=== PATIENT | female | born 1940 | race Caucasian/White ===

== ENCOUNTER → 2024-03-01 07:49 | Outpatient (REF) | payer MEDICARE, SELFPAY | LOC: WDC 07:49 | PROVIDERS: ATTENDING PHYSICIAN Family Medicine | DX: Z12.31 Encounter for screening mammogram for malignant neoplasm of breast (principal) | CPT/HCPCS: 77063; 77067 ==

== ENCOUNTER → 2025-04-04 08:04 | Outpatient (REF) | payer MEDICARE, SELFPAY | LOC: WDC 08:04 | PROVIDERS: ATTENDING PHYSICIAN Family Medicine | DX: Z12.31 Encounter for screening mammogram for malignant neoplasm of breast (principal) | CPT/HCPCS: 77063; 77067 ==

== ENCOUNTER 2025-06-17 17:11 | Inpatient (IN) | payer MEDICARE, SELFPAY ==
[2025-06-17 11:03] VITALS: BP 133/74
[2025-06-17 11:44] LABS: Hematocrit 38.4 % (37.0-47.0); Hemoglobin 13.2 g/dL (12.0-16.0); Mean Corp Hgb Conc. 34.4 g/dL (33.0-37.0); Mean Corpuscular Volume 90.4 fL (81.0-99.0); Nucleated Red Blood Cells % 0 %; Platelet Count 180 10^3/uL (130-400); Red Cell Dist. Width 12.1 % (11.5-14.5)
[2025-06-17 11:45] LABS: Urine Character Clear (Clear)
[2025-06-17 11:56] LABS: ALT (SGPT) 18 U/L (0-35); AST (SGOT) 23 U/L (14-36); Albumin 4.2 g/dl (3.5-5.0); Alkaline Phosphatase 87 U/L (38-126); Blood Urea Nitrogen 20 mg/dl (7-17); Calcium 9.3 mg/dl (8.4-10.2); Carbon Dioxide 25 mmol/L (22-30); Chloride 104 mmol/L (98-107); Glucose 117 mg/dl (70-99); Potassium 3.7 mmol/L (3.5-5.1); Sodium 138 mmol/L (135-145); Total Protein 6.8 g/dl (6.3-8.2); eGFR > 60.00
[2025-06-17 12:11] LABS: Urine White Cell 16-20 /HPF (0-5)
[2025-06-17 12:40] VITALS: BMI 30.7
--- NOTE | 2025-06-17 13:44 | ED.GENMED ---
History of Present Illness
General
Chief Complaint: Urinary Symptoms
Source: patient
Exam Limitations: none
Time Seen by Provider: 06/17/25 13:17
Nursing documentation reviewed up to this point in time: agreed with
History of Present Illness
History of Present Illness:
see MDM
Past History
Past History
ED Past Surgical History: Cholecystectomy, Gynecological, Orthopedic, Urological and Other
Social History
Personal:
Employment: Retired
Review of Systems
Review of Systems
Allergies reviewed?: Yes
All Other Systems: Not applicable
Phy Exam
Physical Exam
Physical Exam:
GENERAL: Alert , in no apparent distress
EYE: pupils equal and reactive
NECK: Supple
ENT: o/p clr, mmm.
CARDIAC: Regular rate and rhythm .
LUNGS: Clear breath sounds bilaterally, no acute respiratory distress, no wheezes/rales/rhonchi
ABDOMEN: Soft, okay no r/g, no cvat, normal bowel sounds
NEUROLOGICAL: Alert and oriented, no focal neuro deficits
SKIN: Warm and dry, skin intact.
MUSCULOSKELETAL: No edema, well perfused. neg lan's sign
PSYCH: Normal and appropriate interaction.
Course
Orders/Labs/Results
Orders:
Orders
06/17/25 11:08
IV Insert/Care/Rem.- Treatment PRN
O2 Therapy [RESP] Urgent
Titrate/Wean O2 to maintain O2 sat greater than (%): 93
Special Instructions: TO MAINTAIN CONTINUOUS O2 SATS > OR = 93%
Pulse Ox/cont/shift [RESP] Urgent
Quantity: 1
Special Instructions: CONTINUOUS
06/17/25 11:25
Complete Blood Count/With Diff Urgent
Comprehensive Metabolic Panel Urgent
Blood Culture Q20M
CECIL Source: Blood/Venous
Specimen Description:
Comment: Urgent from separate sites. If patient screens positive for possible sepsis
06/17/25 11:26
Urinalysis Reflex To Culture Urgent
Date Specimen was Collected: 06/17/25
Time Specimen was Collected: 11:08
Urine Microscopic Reflex Cult Urgent
Urine Culture Urgent
CECIL Source: U
Specimen Description:
Date Specimen was Collected: 06/17/25
Time Specimen was Collected: 11:08
06/17/25 12:26
Blood Culture Q20M
CECIL Source: Blood/Venous
Specimen Description:
Comment: Urgent from separate sites. If patient screens positive for possible sepsis
06/17/25 14:31
CEFTAZidime [Fortaz] 1,000 mg IV NOW STA
Sterile Water [Sterile Water For Injection] 10 ml IV NOW STA
Abnormal Lab Results
06/17/25 06/17/25
11: 11:26
MCH 31.1 H pg
(27.0-31.0)
Lymphocytes % 17.0 L %
(20.5-51.1)
BUN 20 H mg/dl
(7-17)
Glucose 117 H mg/dl
(70-99)
Ur Occult Blood Reflex 2+ A
(Negative)
Leukocyte Esterase Rfl 2+ A
(Negative)
Urine RBC 3-6 A /HPF
(0-2)
Urine WBC (Reflex) 16-20 A /HPF
(0-5)
Urine Bacteria (Reflex) Many A
(Negative)
Urine Albumin (Reflex) 1+ A
(Neg - Trace)
06/17/25 11:25
06/17/25 11:25
Vital Signs
Initial and Last Documented VS:
Initial Vital Signs
Temp Pulse Resp BP Pulse Ox
36.4 C 83 16 133/74 96
06/17/25 11:03 06/17/25 11:03 06/17/25 11:03 06/17/25 11:03 06/17/25 11:03
Last Documented Vital Signs
Temp Pulse Resp BP Pulse Ox
36.4 C 18 16 133/74 96
06/17/25 11:03 06/17/25 12:00 06/17/25 11:03 06/17/25 11:03 06/17/25 13:47
MDM/Problems Addressed
Differential Diagnosis Includes:
see MDM
MDM/Problems Addressed:
Note:
CHIEF COMPLAINT(S)
Urinary issues with symptoms of blood in urine, urgency, frequency, and pressure.
HISTORY OF PRESENT ILLNESS
The patient is 84 y/o female presenting with persistent urinary symptoms despite completing a course of antibiotics (macrobid) She has been on continuous antibiotic prophylaxis with Keflex due to a past bacterial joint infection with hardware
placement in 2019.. The urinary symptoms began recently with episodes of visible blood in the urine described as 'red urine' but without clots about 1 week ago. Alongside, she reports urgency, frequency, and a sensation of pressure, though no
dysuria was mentioned. The patient has no associated nausea or vomiting and no recent instances of blood in urine after initiating antibiotic treatment. There was an episode of dry heaves, which occurred on the first day of taking a new antibiotic a
week ago, but it hasn�t continued since. . She denies fever, shaking chills, or any signs of systemic infection. The current plan involves obtaining the urine culture results to guide further antibiotic therapy.
no fever/chills, back pain, vomiting
ADDITIONAL HISTORY OBTAINED FROM SOURCES OTHER THAN THE PATIENT
Per the patient�s granddaughter, there was a mention by the healthcare provider about sending information over regarding the culture results and the need for intravenous antibiotics. It was also noted during triage that the patient was sent in for
intravenous antibiotic treatment.
EXTERNAL RECORDS REVIEWED
There was no direct access to the urine culture records mentioned. The culture was possibly sent to [facility] and they were expected to send the information over.
CHRONIC MEDICAL CONDITIONS SIGNIFICANTLY AFFECTING CARE
The patient has a history of a bacterial infection in a joint with hardware placed, requiring lifelong antibiotic prophylaxis.
PHYSICAL EXAM
- Abdominal Examination: Mild tenderness noted. No guarding or rebound tenderness.
Nursing notes reviewed and vital signs reviewed.
PLAN
The plan includes reviewing the urine culture results to determine the appropriate antibiotic treatment. The current understanding is that the patient might require intravenous antibiotics due to resistance to the oral regimen. Specific details
regarding the patients reaction to certain antibiotics need careful consideration in choosing the next line of treatment.
DIFFERENTIAL DIAGNOSIS
The Differential Diagnosis includes, in no particular order and is not limited to:
1. Urinary Tract Infection
2. Antibiotic Resistance
3. Pyelonephritis
4. Nephrolithiasis
5. Bladder Cancer
6. Hematuria secondary to medication
7. Interstitial Cystitis
8. Acute Glomerulonephritis
9. Drug-induced Nephropathy
10. Structural anomalies of the urinary tract.
84-year-old female on chronic Keflex due to septic right knee presents for persistent UTI symptoms despite a course of nitrofurantoin orally by her family doctor. She was called today with results of the culture which grew out Pseudomonas which is
pansensitive however patient has allergies to penicillin, Bactrim and cannot tolerate Levaquin, saying that she had tendinitis all over and could not walk.
Patient's not having any systemic symptoms, she just describes dysuria and urgency.
Her white count is normal and she has no fever and stable blood pressure. I reviewed this with the pharmacist. She could potentially try Cipro orally however patient is very nervous to do that because of the previous severe tendinitis she got so
she is declining that option. We I will admit her for IV antibiotics
*Pulse Oximetry
SaO2: 96
Oxygen Mode of Delivery: Room air
Patient hypoxic: no (96)
*Critical Care Note
Total Time (30-74mins, 75-104mins- exclusive of procedures): Not Applicable
ED Attending Note
-
Portions of this chart may have been created with voice recognition software.� Occasional wrong word or��sound alike� substitutions may have occurred due to the inherent limitations of voice recognition software.
Discharge Plan
Departure
Patient Disposition: Admit
Date of Disposition: 06/17/25
Time of Disposition: 13:47
Admit to: Med/Surg
Presentation/result/management discussed w/ accepting MD/DO: Hospitalist
Condition: Fair
Covid-19: Not Applicable
Discharge Problem:
UTI (urinary tract infection), Failure of outpatient treatment
Prescriptions:
No Action
cholecalciferol (vitamin D3) 2,000 UNIT tablet
2,000 unit PO DAILY Qty: 0
omeprazole magnesium [Prilosec OTC] 20 MG tablet,delayed release (DR/EC)
20 mg PO DAILY
pkcdgux-jucgywmcv-bksr 333-133-5 mg Tablet
1 tab PO DAILY Qty: 0
multivitamin Tablet
1 tab PO DAILY
fexofenadine 180 mg Tablet
180 mg PO DAILY
cephalexin 500 mg Tablet
500 mg PO DAILY
sennosides [Senna Lax] 1 TABLET tablet
2 tab PO DAILY
escitalopram oxalate [Lexapro] 5 mg Tablet
5 mg PO DAILY
cranberry 450 mg Tablet
450 mg PO DAILY
Referrals:
Saeid Garay MD [Family Provider, Family Practice]
Interventions
Interventions:
*Risk Screen - Suicide Last Done: 06/17/25 11:03
*General Assessment Last Done: 06/17/25 12:39
*Neglect/Abuse Screening Last Done: 06/17/25 12:41
*ED- Fall Risk Assessment Last Done: 06/17/25 11:03
*ED COVID-19 Vaccine History Last Done: 06/17/25 12:39
*ED Influenza Vaccine History Last Done: 06/17/25 12:39
ED-Female Genitourinary Assessment Last Done: 06/17/25 12:41
Discharge Date and Time
Print Language: TOGOLESE
[2025-06-17] MEDS: FORTAZ 1000 MG IV (14:57)
[2025-06-17] MEDS: STERILE WATER FOR INJECTION 10 ML IV ×2 (14:57→20:58)
--- NOTE | 2025-06-17 17:04 | HPS.HSE ---
Family Physician
-
Family Physician: Saeid Garay
Chief Complaint
-
Dysuria/blood in urine
History of Present Illness
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
hysterectomy, history of bladder sling, history of colon polyp came to ER with new onset of dysuria and hematuria which started last Friday. Patient was seen by primary care physician and urinalysis/urine culture was collected. Patient was started
on nitrofurantoin although did not have much improvement in symptoms. Patient started to having some nausea without any vomiting. Also having lower abdominal discomfort. Patient was notified by primary care physician office of urine culture
growing Pseudomonas and was requested to come to the hospital for IV antibiotic therapy.
In ER patient mainly voicing complaints of dysuria/lower abdominal discomfort. Patient also have bilateral lower extremity swelling and denies of having any previous episodes in the past. Denies of having any heart failure/chronic DVT. No history
of kidney stones. No urological procedures desired bladder sling surgery
Denies of having any cardiopulmonary issues.
Medical History
Past Medical History
Past Medical History: Reports Other
Additional Past Medical History:
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
Past Surgical History: Reports Other
Social History
Tobacco: Non-smoker
Alcohol: None
Drug: None
Living: With Family
Family History
Family History: Not pertinent
Allergies / Home Medications
Allergies reflects when Allergies were last updated in [facility].
Home Medications with original date entered in [facility]
Allergy/Medication List:
Allergies
Allergy/AdvReac Type Severity Reaction Status Date / Time
levofloxacin (From Levaquin) Allergy Intermediate Tendonitis Verified 10/04/22 12:25
lisinopril Allergy Itching Verified 10/04/22 12:25
penicillin G Allergy Rash Verified 10/04/22 12:25
Penicillins Allergy Rash Verified 10/04/22 12:25
Sulfa (Sulfonamide Allergy Rash, Verified 10/04/22 12:25
Antibiotics) throat
closes
sulfamethoxazole Allergy Rash, Verified 10/04/22 12:25
throat
closes
trimethoprim Allergy Unknown Verified 10/04/22 12:25
Home Medications
cholecalciferol (vitamin D3) 50 mcg (2,000 unit) tablet 2,000 unit PO DAILY Supplement ##0 12/12/15
ghfzlbj-rmmqgpaem-jzpo 333 mg-133 mg-5 mg tablet 1 tab PO DAILY Supplement ##0 11/01/16
omeprazole magnesium 20 mg tablet,delayed release (Prilosec OTC) 20 mg PO DAILY 11/01/16
cephalexin 500 mg tablet 500 mg PO DAILY technician terminal and repeater 09/25/22
fexofenadine 180 mg tablet 180 mg PO DAILY Allergies 09/25/22
multivitamin 1 tab PO DAILY 09/25/22
sennosides 8.6 mg tablet (Senna Lax) 2 tab PO DAILY 09/25/22
cranberry fruit 450 mg tablet (cranberry) 450 mg PO DAILY Supplement 06/17/25
escitalopram oxalate 5 mg tablet (Lexapro) 5 mg PO DAILY Mental Health/Anxiety 06/17/25
Review of Systems
-
A 12 point ROS was completed and negative except as noted: Yes
Physical Exam
Vital Signs
Vital Signs
Temp Pulse Resp BP Pulse Ox
97.6 F 18 16 133/74 96
06/17/25 11:03 06/17/25 12:00 06/17/25 11:03 06/17/25 11:03 06/17/25 13:47
Physical Exam
General: No Apparent Distress
HEENT: Atraumatic; No Oxygen
Respiratory: Clear
Cardiac: S1/S2 and Regular Rhythm; No Murmur or Rub
GI: Soft, Non Tender and Non Distended; No Organomegaly
Musculoskeletal: No Clubbing, No Cyanosis, Edema, Left Lower Extremity and Edema, Right Lower Extremity
Skin: No Rash
Neuro: Awake, Alert, Oriented and Nonfocal/grossly intact
Laboratory Results
-
06/17/25 11:25
06/17/25 11:
Laboratory Results
Total Bilirubin 0.4 mg/dl (0.2-1.3) 06/17/25:
AST 23 U/L (14-36) 06/17/25:
ALT 18 U/L (0-35) 06/17/25 11:
Alkaline Phosphatase 87 U/L (38-126) 06/17/25:
Impression/Plan
-
1. Pseudomonas UTI
- Patient have initial symptoms of hematuria/dysuria developing 1 week back and was prescribed nitrofurantoin by primary care
- Urine culture was sent to [facility], requested family to check with [facility] if able to find report. I will try to contact [facility] tomorrow to get the record as well
- Patient vitally stable/afebrile in ER. Normal WBC count.
- Repeat urine culture and blood culture has been collected
- As patient noted some hematuria we will order renal bladder ultrasound
- Patient is allergic to levofloxacin, and thus only remaining antibiotics are IV. Will choose cefepime with penicillin allergy history.
2. Bilateral lower extremity
- Check proBNP, no previous history of heart failure
- May have venous insufficiency although patient denies of noticing significant leg swelling
- Some tenderness to palpitation on exam
- Lower extremity Roe wraps ordered
- Bilateral venous Doppler ordered
3. Bilateral TKA
Chronic right knee prosthetic joint infection
- Hold chronic prophylactic Keflex as patient will is on cefepime.
4. Gastroesophageal reflux disease
- Maintain on omeprazole
5. Depression/anxiety
- Maintained on home dose of Lexapro
6. Generalized weakness
- PT evaluation ordered
DVT prophylaxis -heparin subcu
Full code
Total time spent : 77 mins
I personally saw and examined the patient.
I have reviewed all diagnostic interpretations and treatment plans as written.
Time includes patient management by me, time spent at the patients bedside, time to review lab and imaging results, discussing patient care, documentation in the medical record, and time spent with the family or caregiver and discussing care plan
with RN/Consultants.
--- NOTE | 2025-06-17 17:16 | EDCM ---
Reviewed chart and met with pt and daughter bedside in ED. Pt lives alone in 1 story home, no LITO from front door.
Independent in ADLs, personal care and ambulation at baseline. Does not use assistive device but has cane, RW, WC and shower bench in home.
Daughter lives one house away and provides support.
Confirms prescription coverage.
Hx [facility] and [facility]. No hx SNF.
PCP: Saeid Garay
Pharmacy: [facility]
Anticipate discharge home, CM will continue to follow for all discharge planning needs.
[2025-06-17 18:30] VITALS: BP 176/82; BMI 30.2
[2025-06-17] MEDS: MAXIPIME 1000 MG IV (20:58)
[2025-06-17] MEDS: HEPARIN 5000 UNITS SC (20:59)
[2025-06-17 23:00] VITALS: BP 136/63
[2025-06-18] MEDS: STERILE WATER FOR INJECTION 10 ML IV ×3 (02:59→18:49)
[2025-06-18] MEDS: MAXIPIME 1000 MG IV ×3 (02:59→18:49)
[2025-06-18 05:46] LABS: Hematocrit 36.2 % (37.0-47.0); Hemoglobin 12.2 g/dL (12.0-16.0); Mean Corp Hgb Conc. 33.7 g/dL (33.0-37.0); Mean Corpuscular Volume 93.3 fL (81.0-99.0); Platelet Count 161 10^3/uL (130-400); Red Cell Dist. Width 12.2 % (11.5-14.5)
[2025-06-18 07:41] VITALS: BP 143/78
[2025-06-18] MEDS: PROTONIX 40 MG PO (08:38)
[2025-06-18] MEDS: CLARITIN 10 MG PO (08:38)
[2025-06-18] MEDS: LEXAPRO 5 MG PO (08:38)
[2025-06-18] MEDS: VITAMIN D3 (cholecalciferol) 50 MCG PO (08:38)
[2025-06-18] MEDS: HEPARIN SC (08:41)
--- NOTE | 2025-06-18 12:02 | W.PN.HOSP.TC ---
Today's Communication/Plan
-
see note
Assessment / Plan
Assessment / Plan
Renal bladder US
1. Moderate postvoid residual in the urinary bladder (33 mL).
2. No sonographic evidence for hydronephrosis or nephrolithiasis in either kidney.
3. 1.2 cm hyperechoic mass in the upper pole of the left kidney which is probably either an angiomyolipoma or invagination of adjacent retroperitoneal fat. Renal cell carcinoma is considered unlikely.
1. Pseudomonas UTI
- Patient have initial symptoms of hematuria/dysuria developing 1 week back and was prescribed nitrofurantoin by primary care
- Urine culture report personally reviewed from [facility] -Pseudomonas isolated is pansensitive to antibiotics
- Patient vitally stable/afebrile in ER. Normal WBC count.
- Repeat urine culture and blood culture has been collected. f/u results
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 Will need to follow-up with urology in office.
- Patient is allergic to levofloxacin, and thus only remaining antibiotics are IV. Will choose cefepime with penicillin allergy history.
2. Bilateral lower extremity swelling
Presumed Varicose veins/venous insufficiency related
- ProBNP ~ 490, low concern of HF
- May have venous insufficiency although patient denies of noticing significant leg swelling
- Lower extremity Roe wraps ordered
- Bilateral venous Doppler negative for clot
3. Bilateral TKA
Chronic right knee prosthetic joint infection
- Hold chronic prophylactic Keflex as patient will is on cefepime.
4. Gastroesophageal reflux disease
- Maintain on omeprazole
5. Depression/anxiety
- Maintained on home dose of Lexapro
6. Generalized weakness
- PT evaluation ordered
DVT prophylaxis -heparin subcu
Full code
Daughter updated at bedside
Anticipated Discharge: 24 - 48 hours
Subjective/Interval History
-
Date of Service: June 18, 2025
Objective Data
-
Labs:
Laboratory Results
06/18/25
05:08
WBC 7.1
Hgb 12.2
Hct 36.2 L
Plt Count 161
Vital Signs:
Vital Signs
Temp Pulse Resp BP Pulse Ox
98.6 F 71 16 143/78 95
06/18/25 07:41 06/18/25 07:41 06/18/25 07:41 06/18/25 07:41 06/18/25 07:41
[2025-06-18 12:20] VITALS: BP 184/88
[2025-06-18 15:34] VITALS: BP 139/73
--- NOTE | 2025-06-18 19:50 | PTCARENOTE ---
This RN went into patient room to give scheduled medications. This RN sees patient with daily pill container on bedside table. After being asked about medications, patient states her 'daughter brought them in from home. I didn't take any yet.' This
RN educated patient about how the only medications she can take while admitted will be administered by staff. Patient restates she did not take any of the pills she brought in. This RN reviewed all medications [facility] staff has given her since being
admitted to ensure we are giving all medication necessary. Patient put pills brought in from home back in bag and agreed to have her daughter bring them home. Plan of care ongoing.
[2025-06-18] MEDS: HEPARIN 5000 UNITS SC (19:52)
[2025-06-18 23:35] VITALS: BP 157/76
[2025-06-19] MEDS: MAXIPIME 1000 MG IV ×2 (02:24→10:21)
[2025-06-19] MEDS: STERILE WATER FOR INJECTION 10 ML IV ×3 (02:25→17:50)
[2025-06-19 05:40] LABS: Hematocrit 36.5 % (37.0-47.0); Hemoglobin 12.5 g/dL (12.0-16.0); Mean Corp Hgb Conc. 34.2 g/dL (33.0-37.0); Mean Corpuscular Volume 91.5 fL (81.0-99.0); Platelet Count 170 10^3/uL (130-400); Red Cell Dist. Width 12.1 % (11.5-14.5)
[2025-06-19 07:45] VITALS: BP 136/83
[2025-06-19] MEDS: PROTONIX 40 MG PO (08:19)
[2025-06-19] MEDS: VITAMIN D3 (cholecalciferol) 50 MCG PO (08:19)
[2025-06-19] MEDS: CLARITIN 10 MG PO (08:19)
[2025-06-19] MEDS: HEPARIN 5000 UNITS SC ×2 (08:19→20:28)
[2025-06-19] MEDS: LEXAPRO 5 MG PO (08:19)
--- NOTE | 2025-06-19 11:48 | W.PN.HOSP.TC ---
Today's Communication/Plan
-
ID evaluation
midline
home infusion setup
Assessment / Plan
Assessment / Plan
Renal bladder US
1. Moderate postvoid residual in the urinary bladder (33 mL).
2. No sonographic evidence for hydronephrosis or nephrolithiasis in either kidney.
3. 1.2 cm hyperechoic mass in the upper pole of the left kidney which is probably either an angiomyolipoma or invagination of adjacent retroperitoneal fat. Renal cell carcinoma is considered unlikely.
1. Pseudomonas UTI
- Patient have initial symptoms of hematuria/dysuria developing 1 week back and was prescribed nitrofurantoin by primary care
- Urine culture report personally reviewed from [facility] -Pseudomonas isolated is pansensitive to antibiotics
- Patient vitally stable/afebrile in ER. Normal WBC count.
- Repeat urine culture and hospitalization Pseudomonas -pansensitive antibiotic
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 Will need to follow-up with urology in office.
- Patient is allergic to levofloxacin, and thus only remaining antibiotics are IV.
- Currently on IV cefepime 2g q8h
- ID consultation placed as patient requesting to have home infusion set up. Midline ordered
2. Bilateral lower extremity swelling
Presumed Varicose veins/venous insufficiency related
- ProBNP ~ 490, low concern of HF
- May have venous insufficiency although patient denies of noticing significant leg swelling
- Lower extremity Roe wraps ordered
- Bilateral venous Doppler negative for clot
3. Bilateral TKA
Chronic right knee prosthetic joint infection
- Hold chronic prophylactic Keflex as patient will be on cefepime.
4. Gastroesophageal reflux disease
- Maintain on omeprazole
5. Depression/anxiety
- Maintained on home dose of Lexapro
6. Generalized weakness
- PT evaluation ordered
DVT prophylaxis -heparin subcu
Full code
Daughter updated at bedside
Anticipated Discharge: Within 24 hours
Subjective/Interval History
-
Date of Service: June 19, 2025
no complains overnight
afebrile
Objective Data
-
Labs:
Laboratory Results
06/19/25
05:07
WBC 6.7
Hgb 12.5
Hct 36.5 L
Plt Count 170
Vital Signs:
Vital Signs
Temp Pulse Resp BP Pulse Ox
97.7 F 70 16 136/83 96
06/19/25 07:45 06/19/25 07:45 06/19/25 07:45 06/19/25 07:45 06/19/25 07:45
I&O
06/18/25 06/19/25 06/20/25
06:59 06:59 06:59
Intake Total 1679 / 1679
Balance 1679 / 1679
Review of Systems
-
Respiratory: Reports No Symptoms
Cardiac: Reports No Symptoms
Abdomen/GI: Reports No Symptoms
Physical Exam
-
General: Comfortable and Conversant
HEENT: Negative Oxygen
Neuro: Awake, Alert, Oriented, AO x 3 and Nonfocal/Grossly Intact
Psych: Calm
[2025-06-19 15:18] VITALS: BP 140/80
[2025-06-19] MEDS: MAXIPIME 2000 MG IV (17:51)
[2025-06-19 23:30] VITALS: BP 144/88
[2025-06-20] MEDS: STERILE WATER FOR INJECTION 10 ML IV ×3 (02:42→17:26)
[2025-06-20] MEDS: MAXIPIME 2000 MG IV ×3 (02:45→17:26)
[2025-06-20 05:02] LABS: Hematocrit 35.9 % (37.0-47.0); Hemoglobin 12.2 g/dL (12.0-16.0); Mean Corp Hgb Conc. 34.0 g/dL (33.0-37.0); Mean Corpuscular Volume 90.9 fL (81.0-99.0); Platelet Count 178 10^3/uL (130-400); Red Cell Dist. Width 12.1 % (11.5-14.5)
[2025-06-20 07:30] VITALS: BP 144/78
[2025-06-20] MEDS: PROTONIX 40 MG PO (08:08)
[2025-06-20] MEDS: VITAMIN D3 (cholecalciferol) 50 MCG PO (08:08)
[2025-06-20] MEDS: LEXAPRO 5 MG PO (08:08)
[2025-06-20] MEDS: HEPARIN 5000 UNITS SC (08:08)
[2025-06-20] MEDS: CLARITIN 10 MG PO (08:08)
--- NOTE | 2025-06-20 11:08 | W.PN.HOSP.TC ---
Today's Communication/Plan
-
follow ID recs
Assessment / Plan
Assessment / Plan
Renal bladder US
1. Moderate postvoid residual in the urinary bladder (33 mL).
2. No sonographic evidence for hydronephrosis or nephrolithiasis in either kidney.
3. 1.2 cm hyperechoic mass in the upper pole of the left kidney which is probably either an angiomyolipoma or invagination of adjacent retroperitoneal fat. Renal cell carcinoma is considered unlikely.
Assessment:
Pseudomonas UTI
- Patient have initial symptoms of hematuria/dysuria developing 1 week back and was prescribed nitrofurantoin by primary care
- Urine culture report personally reviewed from [facility] -Pseudomonas isolated is pansensitive to antibiotics
- Patient vitally stable/afebrile in ER. Normal WBC count.
- Repeat urine culture and hospitalization Pseudomonas -pansensitive antibiotic
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 Will need to follow-up with urology in office.
- Patient is allergic to levofloxacin (hx of tendonitis), and thus only remaining antibiotics are IV.
- Currently on IV cefepime 2g q8h; ID evaluation pending. Midline placed.
Bilateral lower extremity swelling
Presumed Varicose veins/venous insufficiency related
- ProBNP ~ 490, low concern of HF
- May have venous insufficiency although patient denies of noticing significant leg swelling
- Lower extremity Roe wraps ordered
- Bilateral venous Doppler negative for clot
Bilateral TKA
Chronic right knee prosthetic joint infection
- Hold chronic prophylactic Keflex as patient will be on cefepime.
Gastroesophageal reflux disease
- Maintain on omeprazole
Depression/anxiety
- Maintained on home dose of Lexapro
Generalized weakness
- PT evals appreciated
DVT ppx: SC heparin
Code: Full
Daughter updated at bedside
Anticipated Discharge: Within 24 hours
Subjective/Interval History
-
Date of Service: June 20, 2025
resting comfortably, no complaints at present
Objective Data
-
Labs:
Laboratory Results
06/20/25
04:54
WBC 6.1
Hgb 12.2
Hct 35.9 L
Plt Count 178
Vital Signs:
Vital Signs
Temp Pulse Resp BP Pulse Ox
97.4 F 83 18 144/78 95
06/20/25 07:30 06/20/25 07:30 06/20/25 07:30 06/20/25 07:30 06/20/25 07:30
I&O
06/19/25 06/20/25 06/21/25
06:59 06:59 06:59
Intake Total 1680 / 1680 895 / 895
Balance 1680 / 1680 895 / 895
Physical Exam
-
General: No Apparent Distress
HEENT: Normocephalic and Atraumatic
Respiratory: Negative Wheezes
Cardiac: Regular Rhythm and S1/S2
GI: Soft
Genito-urinary: No Costovertebral Tender
Neuro: AO x 3
Psych: Calm
Data Reviewed
-
Total Time Spent with Patient (in minutes): 42
Labs: Labs Reviewed by me
--- NOTE | 2025-06-20 13:52 | CON.ID ---
Addendum entered and electronically signed by Brandee Barrios MD 06/21/25 08:25:
This note should be under INFECTIOUS DISEASE CONSULTATION.
Addendum entered and electronically signed by Brandee Barrios MD 06/20/25 15:53:
I personally performed a history and physical exam of the patient and discussed management with the resident. I reviewed the resident's note and agree with the documented findings and plan of care HPI/CC.
A/P
# Uncomplicated symptomatic UTI with pseudomonas
# Allergy to quinolones
- Urine symptoms resolved. No fever/leukocytosis.
- Recommend to complete cefepime (d4) through 11:00 am dose tomorrow, then dc home.
Original Note:
Consultation
-
Date/Time Consultation Requested: 06/19/25
Date/Time Consultation Performed: 06/20/25
Requesting Provider: Dr. Alexander Marte
Performing Provider: Dr. Brandee Barrios
Reason for Consultation: Psuedomonas UTI
Chief Complaint / Past History
Chief Complaint
UTI
History of Present Illness
Patient is a 84-year-old female with past medical history of came to ER on 08/17/24 with new onset of dysuria , hematuria, nausea, and lower abdominal discomfort which started last week. Patient was seen by primary care physician and
urinalysis/urine culture was collected. Patient was started on nitrofurantoin although did not have much improvement in symptoms. Patient was then notified by primary care physician office of urine culture growing Pseudomonas and was requested to
come to the hospital for IV antibiotic therapy where she was then started on cefepime. She is allergic to levofloxacin, penicillins, and sulfa drugs.
Vitals on admission were temperature of 36.4, pulse 83, respiratory rate 16, blood pressure of 133/74, and o2 sat 96% on room air
Repeat cultures from this admission resulted in pseudomonas.
Renal ultrasound and peripheral vascular ultrasound on admission were normal.
Today she states that she has no fever, chills, nausea, suprapubic pain, altered mental status, dyspnea, foul smelling urine, dysuria. No previous history of kidney stones, no recent catheter use, and no previous pseudomonas urinary infection. This
is her second UTI in the past year.
Patient had a midline placed in anticipation of home IV antibiotic use.
Past History
Additional Past Medical History:
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
Additional Past Surgical History:
history of bladder sling,bilateral TKR, cholecystectomy, hysterectomy
Allergy History:
levofloxacin (From Levaquin) Allergy (Intermediate, Verified 10/04/22 12:25)
Tendonitis
lisinopril Allergy (Verified 10/04/22 12:25)
Itching
penicillin G Allergy (Verified 10/04/22 12:25)
Rash
Penicillins Allergy (Verified 10/04/22 12:25)
Rash
Sulfa (Sulfonamide Antibiotics) Allergy (Verified 10/04/22 12:25)
Rash, throat closes
sulfamethoxazole Allergy (Verified 10/04/22 12:25)
Rash, throat closes
trimethoprim Allergy (Verified 10/04/22 12:25)
Unknown
Medications Reviewed: Yes
Current Antibiotics:
Cefepime
Social History
Tobacco: Non-Smoker
Alcohol: None
Drug: None
Living: With Family
Family History
Family History: Not Pertinent
Review of Systems
Review of Systems
General: Negative Fever or Chills
HEENT: Negative Lymphadenopathy
Cardiovascular: Negative Chest Pain
Respiratory: Negative Dyspnea or Cough
Gasteroenterology: Negative Nausea, Vomiting or Diarrhea
Musculoskeletal: Negative Joint Pain or Joint Swelling
Neurological: Negative Headache or Dizziness
Vital Signs
Temp Pulse Resp BP Pulse Ox
97.4 F 83 18 144/78 95
06/20/25 07:30 06/20/25 07:30 06/20/25 07:30 06/20/25 07:30 06/20/25 07:30
Physical Exam
Physical Exam
Constitutional: No Acute Distress
Head: Normocephalic
Cardiovascular: Regular Rate and S1/S2
Pulmonary: Clear
Gastrointestinal: Soft, Non Tender, Non Distended and Normal Bowel Sounds
Genito-Urinary: Negative Suprapubic Tenderness
Skin: Warm and Dry
Neurological: AO x 3
Psychological: Calm
Lab / Diagnostic Study Results
06/20/25 04:54
06/17/25 11:25
Abs Immat Gran (auto) 0.0 10^3/uL (0-0.05) 06/17/25 11:25
Absolute Neuts (auto) 6.3 10^3/uL (1.4-6.5) 06/17/25 11:25
Absolute Lymphs (auto) 1.5 10^3/uL (1.2-3.4) 06/17/25 11:25
Absolute Monos (auto) 0.6 10^3/uL (0.1-0.6) 06/17/25 11:25
Absolute Basos (auto) 0.1 10^3/uL (0-0.2) 06/17/25 11:25
Immature Gran % 0.3 % (0-0.5) 06/17/25 11:25
Neutrophils % 72.0 % (42.2-75.2) 06/17/25 11:25
Lymphocytes % 17.0 % (20.5-51.1) L 06/17/25 11:25
Monocytes % 7.2 % (1.7-9.3) 06/17/25 11:25
Eosinophils % 2.5 % (0-6) 06/17/25 11:25
Basophils % 1.0 % (0-2) 06/17/25 11:25
Ur Squamous Epith Cells 6-10 /LPF (Few) 06/17/25 11:26
Microbiology Results
Micro:
06/17/25 12:26 Blood Culture - Preliminary
Blood/Venous No Growth in 72 hours- Final report to follow
06/17/25 11:25 Blood Culture - Preliminary
Blood/Venous No Growth in 72 hours- Final report to follow
06/17/25 11:26 Urine Culture - Final
Urine Pseudomonas aeruginosa
Renal u/s on 06/18/25:
IMPRESSION:
1. Moderate postvoid residual in the urinary bladder (33 mL).
2. No sonographic evidence for hydronephrosis or nephrolithiasis in either kidney.
3. 1.2 cm hyperechoic mass in the upper pole of the left kidney which is probably either an angiomyolipoma or invagination of adjacent retroperitoneal fat. Renal cell carcinoma is considered unlikely.
Peripheral vascular u/s on 06/18/25:
IMPRESSION:
No sonographic evidence for lower extremity venous thrombosis.
Assessment / Plan
Uncomplicated Pseudomonas UTI with resolved clinical symptoms:
- Confirmed on repeat urine culture on 06/17 and outpatient urine culture in [facility]
-Pseudomonas isolated on outpatient [facility] reports and is pansensitive to antibiotics
- Patient vitals stable and afebrile, physical exam shows no costovertebral or suprapubic tenderness
- Patient is allergic to levofloxacin (hx of tendonitis), penicillin ( rash), and sulfa drugs ( anaphylactic reaction)
- Continue on IV cefepime 2g q8h for one more day and discharge tomorrow. She is on her 4th day today.
- Trend daily CBC CMP and temperature curve
- Advised patient on drinking adequate amount of fluids, and proper wiping hygiene
[2025-06-20 15:20] VITALS: BP 122/64
--- NOTE | 2025-06-20 17:31 | CM ---
CM continues to follow for discharge planning. PT eval indicates no needs.
Anticipate discharge home; CM will continue to follow for all discharge planning needs.
[2025-06-20] MEDS: HEPARIN SC (20:16)
[2025-06-20 23:00] VITALS: BP 137/66
[2025-06-21] MEDS: MAXIPIME 2000 MG IV ×2 (02:57→10:28)
[2025-06-21] MEDS: STERILE WATER FOR INJECTION 10 ML IV ×2 (02:58→10:29)
[2025-06-21 07:30] VITALS: BP 127/74
[2025-06-21] MEDS: PROTONIX 40 MG PO (08:17)
[2025-06-21] MEDS: VITAMIN D3 (cholecalciferol) 50 MCG PO (08:17)
[2025-06-21] MEDS: CLARITIN 10 MG PO (08:17)
[2025-06-21] MEDS: HEPARIN SC (08:17)
[2025-06-21] MEDS: LEXAPRO 5 MG PO (08:17)
--- NOTE | 2025-06-21 09:08 | W.PN.ID1 ---
Date of Service
Date of Service: June 21, 2025
Today's Communication
Completing cefepime today, then dc home this afternnon.
Assessment / Plan
# Uncomplicated Pseudomonas UTI with resolved clinical symptoms
# Allergic to levofloxacin (hx of tendonitis), penicillin ( rash), and sulfa drugs ( anaphylactic reaction)
- Confirmed on repeat urine culture on 06/17 and outpatient urine culture in [facility]
-Pseudomonas isolated on outpatient [facility] reports and is pansensitive to antibiotics
- Patient vitals stable and afebrile, physical exam shows no costovertebral or suprapubic tenderness
- Last day of IV cefepime 2g q8h, day 5.
- Can dc home this afternoon.
- Advised patient on drinking adequate amount of fluids, and proper wiping hygiene
Chief Complaint
-: UTI
Subjective / Review of Systems
Feels well. No urine sxs.
Vital Signs / Physical Exam
Vital Signs
Vital Signs
Temp Pulse Resp BP Pulse Ox
97.3 F 83 16 127/74 98
06/21/25 07:30 06/21/25 07:30 06/21/25 07:30 06/21/25 07:30 06/21/25 07:30
Physical Exam
Constitutional: No Acute Distress and Comfortable
Cardiovascular: Regular Rate and S1/S2
Pulmonary: Clear
Gastrointestinal: Soft, Non Tender and Non Distended
Genito-Urinary: Negative CVA Tenderness
Extremities: Negative Edema
Musculoskeletal: Negative Joint Effusion (b/l knees)
Neurological: AO x 3
Objective Data
Lab Data
Lab Results
06/20/25 04:54
06/17/25 11:25
Total Bilirubin 0.4 mg/dl (0.2-1.3) 06/17/25 11:25
AST 23 U/L (14-36) 06/17/25 11:25
ALT 18 U/L (0-35) 06/17/25 11:25
Alkaline Phosphatase 87 U/L (38-126) 06/17/25 11:25
Most recent labs reviewed.
Micro Results:
06/17/25 12:26 Blood Culture - Preliminary
Blood/Venous No Growth in 72 hours- Final report to follow
06/17/25 11:25 Blood Culture - Preliminary
Blood/Venous No Growth in 72 hours- Final report to follow
06/17/25 11:26 Urine Culture - Final
Urine Pseudomonas aeruginosa
Renal u/s on 06/18/25:
IMPRESSION:
1. Moderate postvoid residual in the urinary bladder (33 mL).
2. No sonographic evidence for hydronephrosis or nephrolithiasis in either kidney.
3. 1.2 cm hyperechoic mass in the upper pole of the left kidney which is probably either an angiomyolipoma or invagination of adjacent retroperitoneal fat. Renal cell carcinoma is considered unlikely.
Peripheral vascular u/s on 06/18/25:
IMPRESSION:
No sonographic evidence for lower extremity venous thrombosis.
--- NOTE | 2025-06-21 11:25 | CM ---
Patient being followed for discharge planning needs. Pt anticipates going home today, denies any needs at this time.
PT has evaluated and there are no skilled PT goals.
Plan: Discharge to home with no identified needs. Pt has a ride home.
[2025-06-21 11:30] VITALS: BP 147/75
--- NOTE | 2025-06-21 12:33 | W.PN.HOSP.TC ---
Today's Communication/Plan
-
dc to home today
Assessment / Plan
Assessment / Plan
Renal bladder US
1. Moderate postvoid residual in the urinary bladder (33 mL).
2. No sonographic evidence for hydronephrosis or nephrolithiasis in either kidney.
3. 1.2 cm hyperechoic mass in the upper pole of the left kidney which is probably either an angiomyolipoma or invagination of adjacent retroperitoneal fat. Renal cell carcinoma is considered unlikely.
Assessment:
Pseudomonas UTI
- Patient have initial symptoms of hematuria/dysuria developing 1 week back and was prescribed nitrofurantoin by primary care
- Urine culture report personally reviewed from [facility] -Pseudomonas isolated is pansensitive to antibiotics
- Patient vitally stable/afebrile in ER. Normal WBC count.
- Repeat urine culture and hospitalization Pseudomonas -pansensitive antibiotic
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 Will need to follow-up with urology in office.
- Patient is allergic to levofloxacin (hx of tendonitis), thus completed a course of Cefepime in hospital. Appreciate ID input.
Bilateral lower extremity swelling
Presumed Varicose veins/venous insufficiency related
- ProBNP ~ 490, low concern of HF
- May have venous insufficiency although patient denies of noticing significant leg swelling
- Lower extremity Roe wraps ordered
- Bilateral venous Doppler negative for clot
Bilateral TKA
Chronic right knee prosthetic joint infection
- resume chronic prophylactic Keflex on 06/22
Gastroesophageal reflux disease
- Maintain on omeprazole
Depression/anxiety
- Maintained on home dose of Lexapro
Generalized weakness
- PT evals appreciated
DVT ppx: SC heparin
Code: Full
More than 30 minutes spent in discharge including
Final examination of the patient
Summarizing hospital stay
Instructions for continuing care to all relevant caregivers
Preparation of discharge records, prescriptions, and referral forms
Total time spent (in minutes):41
Anticipated Discharge: Today
Subjective/Interval History
-
Date of Service: June 21, 2025
resting comfortably, no complaints
Objective Data
-
Vital Signs:
Vital Signs
Temp Pulse Resp BP Pulse Ox
97.4 F 81 16 147/75 96
06/21/25 11:30 06/21/25 11:30 06/21/25 11:30 06/21/25 11:30 06/21/25 11:30
I&O
06/20/25 06/21/25 06/22/25
06:59 06:59 06:59
Intake Total 895 / 895 1320 / 1320
Balance 895 / 895 1320 / 1320
Physical Exam
-
General: No Apparent Distress
HEENT: Normocephalic and Atraumatic
Respiratory: Negative Wheezes
Cardiac: Regular Rhythm and S1/S2
GI: Soft and Nontender
Musculoskeletal: No Edema
Neuro: AO x 3
Psych: Calm
Data Reviewed
-
Total Time Spent with Patient (in minutes): 41
Labs: Labs Reviewed by me
--- NOTE | 2025-06-21 12:36 | W.DCSUMMARY ---
Discharge Summary
Discharge Data
Date of Admission: 06/17/25
Date of Discharge: 06/21/25
-
Pending Results: No
Hospital Course
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
bladder sling, history of colon polyp came to ER with new onset of dysuria and hematuria which started 7 days prior to admission. She was seen by PCP and started on Macrobid without improvement. Her Urine culture later grew Pseudomonas and she came
to hospital for IV treatment. renal US did not show any obstructive pathology. She completed a course of Cefepime over 5 days per ID and was discharged home.
Discharge Plan
-
Patient Disposition: Home (Routine Discharge)
Discharge Diagnosis/Procedures: Pseudomonas UTI - completed IV Cefepime course
Condition: Good
Diet: 2 Gram Sodium
Activity: As tolerated
Bathing Restrictions: None
Referrals:
Saeid Garay MD [Family Provider, [facility]]
Additional Discharge Medication Instructions: resume Cephalexin 06/22
Prescriptions:
Continued
cholecalciferol (vitamin D3) 2,000 UNIT tablet
2,000 unit PO DAILY Qty: 0
omeprazole magnesium [Prilosec OTC] 20 MG tablet,delayed release (DR/EC)
20 mg PO DAILY
ymvoaul-jaoaanggw-owak 333-133-5 mg Tablet
1 tab PO DAILY Qty: 0
multivitamin Tablet
1 tab PO DAILY
fexofenadine 180 mg Tablet
180 mg PO DAILY
cephalexin 500 mg Tablet
500 mg PO DAILY
sennosides [Senna Lax] 1 TABLET tablet
2 tab PO DAILY
escitalopram oxalate [Lexapro] 5 mg Tablet
5 mg PO DAILY
cranberry 450 mg Tablet
450 mg PO DAILY
Leopold Oil 1,000 mg Capsule
1,000 mg PO QHS
Discharge Orders:
Discharge Patient (As Directed); Ordered 06/21/25
Ordered By: Dillon Santana
Discharge Date and Time
Print Language: GIBRALTARIAN
== END 2025-06-21 13:06 | disposition home or self-care (01) | DRG 690 ==
LOC: 3 WEST ACU 17:11
PROVIDERS: Emergency Medicine; ADMITTING PHYSICIAN Hospitalist; ATTENDING PHYSICIAN Internal Medicine; EMERGENCY PHYSICIAN Emergency Medicine; FAMILY PHYSICIAN Family Medicine; OTHER PHYSICIAN Internal Medicine Infectious Disease
DX: N39.0 Urinary tract infection, site not specified (principal); B96.5 Pseudomonas (aeruginosa) (mallei) (pseudomallei) as the cause of diseases classified elsewhere; K21.9 Gastro-esophageal reflux disease without esophagitis; F32.A Depression, unspecified; F41.1 Generalized anxiety disorder; Z87.440 Personal history of urinary (tract) infections
CPT/HCPCS: 76770; 80053; 81003; 81015; 83880; 85025; 85027; 87040; 87077; 87086; 87186; 93970; 94760; 96374; 97116; 97161; 99284